=== PATIENT | male | born 1965 | race Caucasian/White ===

== ENCOUNTER 2016-10-16 08:48 | Emergency (ER) | payer SELFPAY ==
[~2016-10-16] VITALS: Ht 177.8 cm; Wt 81.0 kg
[2016-10-16 08:55] VITALS: TEMP 36.9; Ht 177.8 cm; Wt 81.0 kg
[2016-10-16] MEDS ORDERED: DIPHTHERIA/TETANUS/PERTUSSIS 0.5 ML SYR/VIAL IM. ONE (09:15)
[2016-10-16] MEDS ORDERED: XYLOCAINE 1%/SOD BICARB 20 ML VIAL INFIL ONE (09:30)
[2016-10-16] MEDS ORDERED: CEPHALEXIN MONOHYDRATE 250 MG CAP PO ONE (09:30)
--- NOTE | 2016-10-16 09:56 | DIAGNOSTIC IMAGING REPORT ---
LEFT INDEX FINGER 3 VIEWS HISTORY: L index finger lac/nail subluxation COMPARISON: None. FINDINGS: Essentially nondisplaced comminuted fracture at the distal tuft of the left index finger. Soft tissue laceration within the distal left index finger. No radiopaque foreign bodies. IMPRESSION: Comminuted nondisplaced fracture at the distal tuft of the left index finger. Electronically signed by: Jayjay Clemons M.D. 10/16/2016 9:55 AM Dictated Date/Time: 10/16/2016 9:49 AM
[2016-10-16] MEDS ORDERED: CEPH500C PO (10:47)
[2016-10-16 10:53] VITALS: BP 138/81; PULSE 76; O2SAT 95
--- NOTE | 2016-10-16 16:16 | EMERGENCY ROOM VISIT NOTE ---
History First contact with patient: 08:53 Chief Complaint: LACERATION/CUT (SUT/DERMABOND) Stated Complaint: CUT OFF TIP OF FINGER Nursing Triage Summary: pt here with avulsion to left index finger while using a saw yesterday. pt states minimal pain. no bone showing. full rom of finger History of Present Illness The patient is a 50 year old male who presents to the Emergency Room with complaints of a laceration to his left index finger while operating a table saw yesterday. The patient was not concerned about the wound, but presented today for wound reevaluation. The patient denies any significant pain, rating his discomfort a 2 out of 10 on my exam. Tetanus immunization is up-to-date. The patient is [id number]. Review of Systems 10 system review was performed and was negative except for pertinent positives and negatives as indicated in history of present illness Past Medical/Surgical History Medical Problems: (1) Tobacco use disorder Surgical Problems: (1) No history of previous surgery Social History Smoking Status: Never Smoker Alcohol Use: occasionally Marital Status: Housing Status: lives with family Occupation Status: employed Current/Historical Medications Scheduled Cephalexin Monohydrate (Keflex), 500 MG PO QID Allergies Coded Allergies: No Known Allergies (Unverified , 10/16/16) Physical Exam Vital Signs Date Time Temp Pulse Resp B/P Pulse Ox O2 Delivery O2 Flow Rate FiO2 10/16/16 10:53 76 16 138/81 95 10/16/16 08:55 36.9 72 16 143/87 95 Room Air Physical Exam CONSTITUTIONAL: Healthy and well nourished. Alert and oriented X 3 with positive affect. Patient does not appear in any acute distress. HEENT: Normocephalic, atraumatic. Pupils equal, round and reactive. NECK: Full active range of motion without discomfort. MUSCULOSKELETAL: Examination of the left index finger shows a nail plate that is subluxed proximally. He has no other significant lacerations to the surrounding fingertip. Capillary refill is less than 2 seconds. INTEGUMENTARY: No rash or other significant dermatologic conditions noted. NEUROLOGIC: No focal neurologic deficits noted. Left index fingertip is sensory intact. Medical Decision & Procedures ER Provider Diagnostic Interpretation: My interpretation of left index finger x-rays shows a nondisplaced comminuted fracture of the tuft. Radiologist report is as follows: LEFT INDEX FINGER 3 VIEWS HISTORY: L index finger lac/nail subluxation COMPARISON: None. FINDINGS: Essentially nondisplaced comminuted fracture at the distal tuft of the left index finger. Soft tissue laceration within the distal left index finger. No radiopaque foreign bodies. IMPRESSION: Comminuted nondisplaced fracture at the distal tuft of the left index finger. Medications Administered Medications (Trade) Dose Ordered Sig/Christy Route Start Time Stop Time Status Last Admin Dose Admin Diphtheria/ Pertussis/Tetanus Vacc (Adacel Inj) 0.5 ml ONCE ONCE IM. 10/16/16 09:15 10/16/16 09:16 DC 10/16/16 09:27 0.5 ML Cephalexin Monohydrate (Keflex Cap) 500 mg NOW ONCE PO 10/16/16 09:30 10/16/16 09:31 DC 10/16/16 09:28 500 MG Procedure Now reduction was performed under digital block anesthesia after receiving verbal consent from the patient. Using buffered 1% lidocaine without epinephrine, good digital block anesthesia was administered. The finger was in painted with iodine and allowed to dry. The nail was then reduced, and attached at the proximal corners with 4-0 nylon simple interrupted sutures 2. A bacitracin dressing was applied. ED Course Patient history and physical exam were performed. Nurse's notes were reviewed. X-rays of the left index finger confirms a comminuted tuft fracture. The nail was reduced under digital block anesthesia. The patient was provided a prescription for Keflex. He was instructed to follow-up with [facility] orthopaedics for further reevaluation and management. Ice and elevation for swelling. Ibuprofen and Tylenol as needed for pain. The patient refused any prescription analgesics, was happy with plan of care, and denied any pain at the conclusion of my exam. Medical Decision Impression Primary Impression: Open fracture of phalanx of left index finger Departure Information Prescriptions Cephalexin Monohydrate (Keflex) 500 Mg Cap 500 MG PO QID for 7 Days, #28 CAP Prov: Álvaro Cota PA 10/16/16 Referrals No Doctor, Assigned (PCP) Forms HOME CARE DOCUMENTATION FORM, IMPORTANT VISIT INFORMATION Patient Instructions My [facility] Problem Qualifiers Primary Impression: Open fracture of phalanx of left index finger Encounter type: initial encounter Phalanx: distal Fracture alignment: nondisplaced Qualified Codes: S62.661B - Nondisplaced fracture of distal phalanx of left index finger, initial encounter for open fracture
== END 2016-10-16 10:53 | disposition home or self-care (01) ==
LOC: C.EDB 08:50 → C.EDA 10:53
DX: S62.661B Nondisplaced fracture of distal phalanx of left index finger, initial encounter for open fracture (principal); W31.2XXA Contact with powered woodworking and forming machines, initial encounter; Z72.0 Tobacco use; Z23 Encounter for immunization